=== PATIENT | male | born 1995 | race Caucasian/White ===

== ENCOUNTER 2019-03-13 09:09 | Emergency (ER) | payer SELFPAY ==
[~2019-03-13] VITALS: Ht 188 cm; Wt 128.0 kg
[2019-03-13] MEDS ORDERED: LIDOCAINE HCL/PF 1% 10 MG/ML 5ML VIAL IJ ONE (10:45)
[2019-03-13] MEDS ORDERED: BACITRACIN ZINC OINT UDPKT TOP ONE (10:45)
[2019-03-13 11:58] VITALS: BP 130/84
== END 2019-03-13 12:00 | disposition home or self-care (01) ==
LOC: ER 09:09
DX: L02.31 Cutaneous abscess of buttock (principal); F12.10 Cannabis abuse, uncomplicated
CPT/HCPCS: 10060; 99283; J3490

== ENCOUNTER 2019-03-24 01:58 | Emergency (ER) | payer SELFPAY | END 2019-03-24 05:09 | disposition left against medical advice (07) | LOC: ER 01:58 | DX: Z53.21 Procedure and treatment not carried out due to patient leaving prior to being seen by health care provider (principal) ==

== ENCOUNTER 2019-09-28 09:41 | Emergency (ER) | payer SELFPAY ==
[~2019-09-28] VITALS: Ht 188 cm; Wt 127.0 kg
[2019-09-28 10:08] VITALS: BP 174/82
[2019-09-28] MEDS ORDERED: ACETAMINOPHEN 325MG TABLET PO ONE (11:30)
== END 2019-09-28 13:04 | disposition home or self-care (01) ==
LOC: ER 09:41
DX: S80.01XA Contusion of right knee, initial encounter (principal); F12.10 Cannabis abuse, uncomplicated; Z90.49 Acquired absence of other specified parts of digestive tract; W18.39XA Other fall on same level, initial encounter; Y93.89 Activity, other specified; Y92.89 Other specified places as the place of occurrence of the external cause; Y99.8 Other external cause status
CPT/HCPCS: 73560; 99283